=== PATIENT | male | born 1985 | race African-American/Black ===

== ENCOUNTER 2021-10-17 19:21 | Inpatient (IN) | payer MEDICAID ==
[~2021-10-17] VITALS: Ht 182.9 cm; Wt 116.3 kg
[2021-10-17] MEDS ORDERED: ondansetron/PF 4mg/2ml inj IV ONE (20:10)
--- NOTE | 2021-10-17 20:17 | NUR ---
COVID SWAB COLLECTED IN TRIAGE.
[2021-10-17 20:42] LABS: BASOPHILS # (AUTO) 0.1 X10'3 (0-0.2); BASOPHILS % (AUTO) 0.3 % (0-1); EOSINOPHILS % (AUTO) 0 % (0-6); HEMATOCRIT 44.6 % (42.0-52.0); HEMOGLOBIN 15.3 g/dl (14.0-17.9); LYMPHOCYTES # (AUTO) 1.7 X10'3 (1.1-4.8); LYMPHOCYTES % (AUTO) 9.4 % (21-51); MEAN CORPUSCULAR HEMOGLOBIN 30.9 PG (27.0-31.0); MEAN CORPUSCULAR HGB CONC 34.2 g/dL (33.0-36.5); MEAN CORPUSCULAR VOLUME 90.3 FL (78-98); MEAN PLATELET VOLUME 7.6 FL (7.4-10.4); MONOCYTES # (AUTO) 0.6 X10'3 (0-0.9); MONOCYTES % (AUTO) 3.2 % (2-12); NEUTROPHILS # (AUTO) 16.1 X10'3 (1.8-7.7); NEUTROPHILS % (AUTO) 87.1 % (42-75); PLATELET COUNT 283 X10'3 (140-440); RED BLOOD COUNT 4.94 X10'6 (4.70-6.10); RED CELL DISTRIBUTION WIDTH 13.6 % (11.5-14.5); WHITE BLOOD COUNT 18.5 X10'3 (4.5-11.0)
[2021-10-17 20:56] LABS: ALANINE AMINOTRANSFERASE 42 U/L (12-78); ALBUMIN 4.1 G/DL (3.4-5.0); ALBUMIN/GLOBULIN RATIO 1.1 (1.1-1.5); ALKALINE PHOSPHATASE 90 IU/L (46-116); ANION GAP 13 (8-16); ASPARTATE AMINO TRANSFERASE 18 U/L (10-37); BILIRUBIN,TOTAL 1.5 MG/DL (0.1-1.0); BLOOD UREA NITROGEN 11 MG/DL (7-18); BUN/CREATININE RATIO 10.1 (5.4-32.0); CHLORIDE 96 MMOL/L (99-107); CREATININE 1.09 MG/DL (0.60-1.10); GLUCOSE 136 MG/DL (70-104); LIPASE 79 U/L (73-393); SODIUM 135 MMOL/L (135-145); TOTAL CARBON DIOXIDE 26.1 MMOL/L (24-32); eGFR 77 ML/MIN
[2021-10-17] MEDS ORDERED: temazepam 15mg capsule PO PRN (21:00)
[2021-10-17] MEDS ORDERED: piperacillin/tazo 3.375gm/50ml 50 ML IV ONE (21:00)
[2021-10-17] MEDS ORDERED: mag hydrox/Alum hydrox/simeth 30ml oral suspension PO PRN (21:35)
[2021-10-17] MEDS: normal saline 1000ml 1,000 ML IV SCH (21:35)
[2021-10-17] MEDS ORDERED: diphenhydrAMINE 25mg capsule PO PRN (21:35)
[2021-10-17] MEDS ORDERED: bisacodyl 10mg suppository rectal RC PRN (21:35)
[2021-10-17] MEDS ORDERED: ondansetron/PF 4mg/2ml inj IV PRN (21:35)
[2021-10-17] MEDS ORDERED: diphenhydrAMINE 50 mg/ml inj IV PRN (21:35)
[2021-10-17] MEDS ORDERED: metoclopramide 5 mg/ml inj IV PRN (21:35)
[2021-10-17] MEDS ORDERED: HYDROmorphone inj. 0.5 MG/0.5 ML DISP.SYRIN IV PRN (21:35)
[2021-10-17] MEDS ORDERED: acetaminophen 650mg rectal suppository RC PRN (21:35)
[2021-10-17] MEDS ORDERED: magnesium hydroxide 30ml (MOM) UD suspension PO PRN (21:35)
[2021-10-17] MEDS ORDERED: normal saline 1000ML IV soln IVB ONE (22:00)
[2021-10-17 22:04] LABS: MAGNESIUM 1.7 MG/DL (1.5-2.4); PHOSPHORUS 3.4 MG/DL (2.3-4.5)
[2021-10-17 22:10] VITALS: BP 141/95
[2021-10-17] MEDS ORDERED: PROP10TA10 PO (22:40)
[2021-10-17] MEDS ORDERED: OLAN15TA35 PO (22:40)
[2021-10-17] MEDS ORDERED: CHOL500050 PO (22:40)
[2021-10-17] MEDS ORDERED: GUAN3TAB2 PO (22:40)
[2021-10-17] MEDS ORDERED: VENL150C58 PO (22:40)
--- NOTE | 2021-10-17 22:45 | NUR ---
rECEIVED PT FROM ER VIA W/C. ORIENTED TO ROOM AND ROUTINE, ALERT AND ORIENTED Addendum: 10/18/21 at 0413 by Davian Hampton RN Amended: Links added.
[2021-10-17] MEDS: morphine 4 MG/ML inj SYRINge IV PRN (22:46)
[2021-10-17] MEDS: piperacillin/tazo 4.5gm/100ml 100 ML IV SCH (22:53)
[2021-10-17] MEDS: nicotine 21mg patch - 24 hr TD ONE ×2 (22:53→23:00)
[2021-10-17 23:38] LABS: APTT 28 SECONDS (22-32)
[2021-10-17 23:59] LABS: HEMOGLOBIN A1C 6.1 % (4.5-6.2)
[2021-10-18] VITALS (17 sets, daily range): BP systolic 122–140; BP diastolic 73–89
[2021-10-18] MEDS ORDERED: piperacillin/tazo 4.5gm/100ml 100 ML IV SCH
[2021-10-18] MEDS: morphine 4 MG/ML inj SYRINge IV PRN (06:14)
[2021-10-18 07:13] LABS: BASOPHILS % (AUTO) 0.2 % (0-1); EOSINOPHILS % (AUTO) 0.1 % (0-6); MONOCYTES # (AUTO) 0.5 X10'3 (0-0.9)
[2021-10-18 07:16] LABS: HEMATOCRIT 40.5 % (42.0-52.0); HEMOGLOBIN 13.9 g/dl (14.0-17.9); LYMPHOCYTES # (AUTO) 1.8 X10'3 (1.1-4.8); MEAN CORPUSCULAR HEMOGLOBIN 30.9 PG (27.0-31.0); MEAN CORPUSCULAR HGB CONC 34.2 g/dL (33.0-36.5); MEAN CORPUSCULAR VOLUME 90.5 FL (78-98); MEAN PLATELET VOLUME 7.8 FL (7.4-10.4); MONOCYTES % (AUTO) 2.6 % (2-12); NEUTROPHILS # (AUTO) 17.6 X10'3 (1.8-7.7); NEUTROPHILS % (AUTO) 88.1 % (42-75); PLATELET COUNT 253 X10'3 (140-440); RED BLOOD COUNT 4.48 X10'6 (4.70-6.10); RED CELL DISTRIBUTION WIDTH 13.9 % (11.5-14.5); WHITE BLOOD COUNT 19.9 X10'3 (4.5-11.0)
[2021-10-18 07:24] LABS: ALANINE AMINOTRANSFERASE 34 U/L (12-78); ALBUMIN 3.4 G/DL (3.4-5.0); ALBUMIN/GLOBULIN RATIO 0.9 (1.1-1.5); ALKALINE PHOSPHATASE 76 IU/L (46-116); ANION GAP 10 (8-16); ASPARTATE AMINO TRANSFERASE 14 U/L (10-37); BILIRUBIN,TOTAL 1.5 MG/DL (0.1-1.0); BLOOD UREA NITROGEN 11 MG/DL (7-18); BUN/CREATININE RATIO 10.6 (5.4-32.0); CALCIUM 8.4 MG/DL (8.5-10.1); CHLORIDE 99 MMOL/L (99-107); CREATININE 1.04 MG/DL (0.60-1.10); GLUCOSE 130 MG/DL (70-104); POTASSIUM 3.6 MMOL/L (3.5-5.1); SODIUM 136 MMOL/L (135-145); TOTAL CARBON DIOXIDE 27.4 MMOL/L (24-32); TOTAL PROTEIN 7.1 G/DL (6.4-8.2); eGFR 81 ML/MIN
[2021-10-18] MEDS: normal saline 1000ml 1,000 ML IV SCH ×2 (07:35→15:37)
--- NOTE | 2021-10-18 07:39 | NUR ---
Problems reprioritized. Patient report given, questions answered & plan of care reviewed with KALEY Bustos. Addendum: 10/18/21 at 0740 by Davian Hampton RN Amended: Links added.
[2021-10-18] MEDS ORDERED: BUPIVAcaine/PF 2.5 mg/ml (0.25%) 30ml vial ONE (07:48)
[2021-10-18] MEDS: piperacillin/tazo 4.5gm/100ml 100 ML IV SCH ×3 (07:55→22:37)
[2021-10-18] MEDS: propranolol 10mg tablet PO SCH ×2 (07:55→20:12)
[2021-10-18] MEDS: docusate sod 100mg capsule PO SCH ×2 (08:00→20:12)
[2021-10-18] MEDS ORDERED: ondansetron/PF 4mg/2ml inj IV PRN (08:05)
[2021-10-18] MEDS ORDERED: morphine 2 MG/ML inj. syringe IV PRN (08:05)
[2021-10-18] MEDS ORDERED: morphine 4 MG/ML inj SYRINge IV PRN (08:05)
[2021-10-18] MEDS ORDERED: meperidine/PF 25mg/ml syringe IV PRN ×2 (08:05)
[2021-10-18] MEDS ORDERED: ringers solution, lacted 1,000 ML IV SCH (08:05)
[2021-10-18] MEDS ORDERED: proCHLORperazine 10 MG/2 ml inj IV PRN (08:05)
--- NOTE | 2021-10-18 08:15 | NUR ---
Called report to Carol in Recovery all questions answered. Whit is aware NOC shift RN gave 4mg IV Morphine but it did not save in computer.
--- NOTE | 2021-10-18 08:22 | NUR ---
DM consult: Pt with T2DM, well controlled with A1c 6.1%, DM education not warranted at this time. Will continue to follow. Addendum: 10/18/21 at [address] Amended: Links added.
[2021-10-18] MEDS: meperidine/PF 25mg/ml syringe IV PRN ×2 (08:35→10:45)
[2021-10-18 08:42] LABS: PLATELET ESTIMATE NORMAL; TOTAL CELLS COUNTED 100
--- NOTE | 2021-10-18 08:44 | NUR ---
Called Alda ROCHE at home she had administered 4mg IV Morphine at 0612 did not realize it did not save. She will try and get back in to fix in computer.
[2021-10-18] MEDS ORDERED: midazolam 1 mg/ML 2ml injection ONE (08:58)
[2021-10-18] MEDS ORDERED: fentaNYL /PF 50mcg/ml 5ml ampule ONE (08:59)
[2021-10-18] MEDS ORDERED: LIDOcaine 2% (20mg/ml) 5ml vial ONE (09:11)
[2021-10-18] MEDS ORDERED: propofol inj 20 ML IV ONE (09:11)
[2021-10-18] MEDS ORDERED: ondansetron/PF 4mg/2ml inj ONE (09:33)
[2021-10-18] MEDS ORDERED: rocuronium 10mg/ml inj IV ONE (09:34)
[2021-10-18] MEDS ORDERED: HYDROcodone/acetaminophen 10/325mg tab PO PRN (10:10)
--- NOTE | 2021-10-18 10:19 | NUR ---
Received from OR via , accompanied by Anesthesiologist DR CUADRA and report given by Anesthesiolgist. PT PRESENTS WITH 20G LEFT FOREARM, WILL DRAIN ABD DRESSING DRY AND INTACT, VSS Addendum: 10/18/21 at 1023 by Carol Smyth RN, RN Amended: Links added.
--- NOTE | 2021-10-18 10:55 | NUR ---
Report called to receiving nurse LJ ROCHE. Transferred via [facility]OSPITAL BED BY MADIHA ROCHE TO ROOM 360A. PT BELONGINGS LEFT IN PT ROOM 360A. Special Issues communicated to receiving nurse. Addendum: 10/18/21 at 1102 by Carol Smyth RN RN Amended: Links added.
--- NOTE | 2021-10-18 10:56 | NUR ---
PT REQUESTING TO USE A URINAL. PT PRESENTED WITH URINAL AND IS COMPLAINING THAT HE CAN NOT URINATE SITTING DOWN. PT WOULD LIKE TO STAND UP, I EXPPLAINED THAT HE JUST HAD SURGERY IT WOULD NOT BE GOOD FOR HIM TO STAND UP AT THIS TIME. I ASKED TO BLADDER SCAN PT AND HE REFUSED SAYING HE JUST WANTED TO STAND UP. I EXPLAINED IN SURGERY THEY INSERTED A COOL CATHETER AND DRAINED HIS BLADDER. PT IS INSISTENT IN STANDING UP. PT TAKEN TO THE FLOOR WHERE THEY HAVE PRIVATE BATHROOMS. MADIHA ROCHE TAKEN TO THE FLOOR. Addendum: 10/18/21 at 1102 by Carol Smyth RN, RN Amended: Links added.
[2021-10-18] MEDS: pantoprazole 40MG/NS 100ML BAG 100 ML IV SCH (11:26)
[2021-10-18] MEDS: OLANZAPINE 5 MG TABLET PO SCH (11:26)
[2021-10-18] MEDS: venlafaxine XR 75mg capsule (Q24H) PO SCH (11:28)
[2021-10-18 11:32] LABS: CLARITY,URINE CLEAR (Clear); COLOR,URINE YELLOW (Yellow); GLUCOSE, URINE NEGATIVE (Neg); KETONES,URINE NEGATIVE (Neg); LEUKOCYTE ESTERASE ,URINE NEGATIVE (Neg); NITRITES, URINE NEGATIVE (Neg); OCCULT BLOOD,URINE MODERATE (Neg); PROTEIN,URINE NEGATIVE (Neg); UROBILINOGEN,URINE 0.2 E.U/dL (0.2-1.0)
[2021-10-18 11:58] LABS: UA COLLECTION TYPE CLN CATCH MIDSTREAM
[2021-10-18 12:14] LABS: BACTERIA,URINE NONE SEEN /HPF (Neg); MUCUS STRANDS FEW /LPF (Neg); SQUAMOUS EPITHELIAL CELL,UR FEW /LPF (FEW); TRANSITIONAL EPI CELLS,URINE MODERATE /HPF; WBC,URINE 0-4 /HPF (0-4)
--- NOTE | 2021-10-18 15:50 | NUR ---
Patient took off his post op vitals had to restart post op vitals
--- NOTE | 2021-10-18 19:15 | NUR ---
Problems reprioritized. Patient report given, questions answered & plan of care reviewed with Nelly ROCHE.
[2021-10-18] MEDS: HYDROcodone/acetaminophen 5mg/325mg tablet PO PRN (22:37)
[2021-10-19] VITALS: BP 103/76
[2021-10-19] MEDS: morphine 2 MG/ML inj. syringe IV PRN ×2 (00:03→03:45)
[2021-10-19 04:00] VITALS: BP 125/72
--- NOTE | 2021-10-19 06:10 | NUR ---
Patient in room [facility]. I have received report from KALEY Villegas and had the opportunity to ask questions and assume patient care.
--- NOTE | 2021-10-19 06:11 | NUR ---
Problems reprioritized. Patient report given, questions answered & plan of care reviewed with Dilcia ROCHE. Addendum: 10/19/21 at 0612 by Nelly Truong RN Amended: Links added.
[2021-10-19 06:30] VITALS: BP 116/70
[2021-10-19 07:32] LABS: BASOPHILS % (AUTO) 0.1 % (0-1); EOSINOPHILS % (AUTO) 0 % (0-6); HEMATOCRIT 37.4 % (42.0-52.0); HEMOGLOBIN 12.7 g/dl (14.0-17.9); LYMPHOCYTES % (AUTO) 5.4 % (21-51); MEAN CORPUSCULAR HEMOGLOBIN 31.2 PG (27.0-31.0); MEAN CORPUSCULAR HGB CONC 33.9 g/dL (33.0-36.5); MEAN CORPUSCULAR VOLUME 91.9 FL (78-98); MEAN PLATELET VOLUME 7.8 FL (7.4-10.4); MONOCYTES # (AUTO) 0.9 X10'3 (0-0.9); MONOCYTES % (AUTO) 4.9 % (2-12); NEUTROPHILS # (AUTO) 16.2 X10'3 (1.8-7.7); NEUTROPHILS % (AUTO) 89.6 % (42-75); PLATELET COUNT 214 X10'3 (140-440); RED BLOOD COUNT 4.07 X10'6 (4.70-6.10); RED CELL DISTRIBUTION WIDTH 13.8 % (11.5-14.5); WHITE BLOOD COUNT 18.1 X10'3 (4.5-11.0)
[2021-10-19] MEDS: HYDROcodone/acetaminophen 10/325mg tab PO PRN ×4 (07:34→22:21)
[2021-10-19 07:45] LABS: ALANINE AMINOTRANSFERASE 25 U/L (12-78); ALBUMIN 2.9 G/DL (3.4-5.0); ALBUMIN/GLOBULIN RATIO 0.7 (1.1-1.5); ALKALINE PHOSPHATASE 72 IU/L (46-116); ANION GAP 8 (8-16); ASPARTATE AMINO TRANSFERASE 10 U/L (10-37); BILIRUBIN,TOTAL 0.7 MG/DL (0.1-1.0); BLOOD UREA NITROGEN 9 MG/DL (7-18); BUN/CREATININE RATIO 9.9 (5.4-32.0); CALCIUM 8.5 MG/DL (8.5-10.1); CHLORIDE 104 MMOL/L (99-107); CREATININE 0.91 MG/DL (0.60-1.10); GLUCOSE 126 MG/DL (70-104); POTASSIUM 3.9 MMOL/L (3.5-5.1); SODIUM 140 MMOL/L (135-145); TOTAL CARBON DIOXIDE 28.2 MMOL/L (24-32); TOTAL PROTEIN 6.9 G/DL (6.4-8.2); eGFR > 90 ML/MIN
[2021-10-19] MEDS: OLANZAPINE 5 MG TABLET PO SCH ×3 (08:00→20:46)
[2021-10-19] MEDS: pantoprazole 40MG/NS 100ML BAG 100 ML IV SCH (08:45)
[2021-10-19] MEDS: venlafaxine XR 75mg capsule (Q24H) PO SCH (08:48)
[2021-10-19] MEDS: docusate sod 100mg capsule PO SCH ×2 (08:48→20:46)
[2021-10-19] MEDS: propranolol 10mg tablet PO SCH ×2 (08:48→20:47)
[2021-10-19] MEDS ORDERED: HYDR-3965 PO (09:21)
[2021-10-19] MEDS: piperacillin/tazo 4.5gm/100ml 100 ML IV SCH ×2 (09:35→16:08)
[2021-10-19 11:00] VITALS: BP 117/70
[2021-10-19] MEDS: normal saline 1000ml 1,000 ML IV SCH ×2 (14:26)
--- NOTE | 2021-10-19 18:40 | NUR ---
Problems reprioritized. Patient report given, questions answered & plan of care reviewed with Cris Lynch RN.
--- NOTE | 2021-10-19 18:45 | NUR ---
Patient in room [facility]. I have received report from YESSENIA ROCHE and had the opportunity to ask questions and assume patient care.
[2021-10-19 20:00] VITALS: BP 135/86
[2021-10-20] VITALS: BP 111/69
[2021-10-20] MEDS: normal saline 1000ml 1,000 ML IV SCH ×3 (00:45→19:35)
[2021-10-20] MEDS: piperacillin/tazo 4.5gm/100ml 100 ML IV SCH ×4 (00:45→23:35)
[2021-10-20] MEDS: HYDROcodone/acetaminophen 10/325mg tab PO PRN ×3 (03:33→12:57)
--- NOTE | 2021-10-20 04:43 | NUR ---
Problems reprioritized. Patient report given, questions answered & plan of care reviewed with PRUDENCE RN.
--- NOTE | 2021-10-20 05:37 | NUR ---
Patient in room [facility]. I have received report from LOLLY AMBROCIO RN and had the opportunity to ask questions and assume patient care.
[2021-10-20 05:44] LABS: BASOPHILS % (AUTO) 0.3 % (0-1); EOSINOPHILS % (AUTO) 0.3 % (0-6); HEMATOCRIT 38.1 % (42.0-52.0); HEMOGLOBIN 12.8 g/dl (14.0-17.9); LYMPHOCYTES # (AUTO) 1.4 X10'3 (1.1-4.8); LYMPHOCYTES % (AUTO) 10.8 % (21-51); MEAN CORPUSCULAR HEMOGLOBIN 30.9 PG (27.0-31.0); MEAN CORPUSCULAR HGB CONC 33.6 g/dL (33.0-36.5); MEAN PLATELET VOLUME 7.9 FL (7.4-10.4); MONOCYTES # (AUTO) 1.2 X10'3 (0-0.9); MONOCYTES % (AUTO) 9.2 % (2-12); NEUTROPHILS # (AUTO) 10.3 X10'3 (1.8-7.7); NEUTROPHILS % (AUTO) 79.4 % (42-75); PLATELET COUNT 244 X10'3 (140-440); RED BLOOD COUNT 4.14 X10'6 (4.70-6.10); RED CELL DISTRIBUTION WIDTH 13.9 % (11.5-14.5)
[2021-10-20 06:00] LABS: ALANINE AMINOTRANSFERASE 24 U/L (12-78); ALBUMIN 2.8 G/DL (3.4-5.0); ALBUMIN/GLOBULIN RATIO 0.7 (1.1-1.5); ALKALINE PHOSPHATASE 74 IU/L (46-116); ANION GAP 5 (8-16); ASPARTATE AMINO TRANSFERASE 14 U/L (10-37); BLOOD UREA NITROGEN 7 MG/DL (7-18); BUN/CREATININE RATIO 7.4 (5.4-32.0); CALCIUM 8.5 MG/DL (8.5-10.1); CHLORIDE 102 MMOL/L (99-107); CREATININE 0.94 MG/DL (0.60-1.10); GLUCOSE 110 MG/DL (70-104); POTASSIUM 3.7 MMOL/L (3.5-5.1); SODIUM 137 MMOL/L (135-145); TOTAL CARBON DIOXIDE 30.1 MMOL/L (24-32); TOTAL PROTEIN 6.7 G/DL (6.4-8.2); eGFR > 90 ML/MIN
[2021-10-20] MEDS: venlafaxine XR 75mg capsule (Q24H) PO SCH (07:38)
[2021-10-20] MEDS: docusate sod 100mg capsule PO SCH ×2 (07:38→21:21)
[2021-10-20] MEDS: propranolol 10mg tablet PO SCH ×3 (07:39→23:35)
[2021-10-20] MEDS: pantoprazole 40MG/NS 100ML BAG 100 ML IV SCH (07:39)
[2021-10-20 08:00] VITALS: BP 140/81
[2021-10-20 11:49] VITALS: BP 134/76
--- NOTE | 2021-10-20 11:50 | NUR ---
Patient in room [facility]. I have received report from KALEY Coy and had the opportunity to ask questions and assume patient care.
[2021-10-20 11:51] VITALS: BP 134/76
--- NOTE | 2021-10-20 11:55 | NUR ---
Problems reprioritized. Patient report given, questions answered & plan of care reviewed with SUE ROCHE.
[2021-10-20 18:00] VITALS: BP 149/90
--- NOTE | 2021-10-20 18:15 | NUR ---
Problems reprioritized. Patient report given, questions answered & plan of care reviewed with LIYAH Valadez.
[2021-10-20] MEDS: OLANZAPINE 5 MG TABLET PO SCH (21:21)
[2021-10-20] MEDS: morphine 2 MG/ML inj. syringe IV PRN (21:28)
[2021-10-20] MEDS: acetaminophen 325mg tablet PO PRN (22:51)
[2021-10-20] MEDS ORDERED: propranolol 10mg tablet PO ONE (23:25)
[2021-10-21] VITALS: BP 165/110
[2021-10-21] MEDS: HYDROcodone/acetaminophen 10/325mg tab PO PRN ×2 (01:28→08:18)
[2021-10-21] MEDS: normal saline 1000ml 1,000 ML IV SCH ×3 (01:31→21:55)
[2021-10-21] MEDS: morphine 2 MG/ML inj. syringe IV PRN (05:24)
[2021-10-21 06:38] LABS: BASOPHILS % (AUTO) 0.2 % (0-1); EOSINOPHILS # (AUTO) 0.1 X10'3 (0-0.9); EOSINOPHILS % (AUTO) 0.9 % (0-6); HEMATOCRIT 40.6 % (42.0-52.0); HEMOGLOBIN 13.7 g/dl (14.0-17.9); LYMPHOCYTES # (AUTO) 1.9 X10'3 (1.1-4.8); LYMPHOCYTES % (AUTO) 12.8 % (21-51); MEAN CORPUSCULAR HGB CONC 33.8 g/dL (33.0-36.5); MEAN CORPUSCULAR VOLUME 91.7 FL (78-98); MEAN PLATELET VOLUME 7.5 FL (7.4-10.4); MONOCYTES # (AUTO) 1.9 X10'3 (0-0.9); MONOCYTES % (AUTO) 12.2 % (2-12); NEUTROPHILS # (AUTO) 11.2 X10'3 (1.8-7.7); NEUTROPHILS % (AUTO) 73.9 % (42-75); PLATELET COUNT 265 X10'3 (140-440); RED BLOOD COUNT 4.43 X10'6 (4.70-6.10); RED CELL DISTRIBUTION WIDTH 13.6 % (11.5-14.5); WHITE BLOOD COUNT 15.2 X10'3 (4.5-11.0)
[2021-10-21 06:50] LABS: ALANINE AMINOTRANSFERASE 32 U/L (12-78); ALBUMIN 2.6 G/DL (3.4-5.0); ALBUMIN/GLOBULIN RATIO 0.6 (1.1-1.5); ALKALINE PHOSPHATASE 94 IU/L (46-116); ANION GAP 8 (8-16); ASPARTATE AMINO TRANSFERASE 23 U/L (10-37); BILIRUBIN,TOTAL 1.4 MG/DL (0.1-1.0); BLOOD UREA NITROGEN 8 MG/DL (7-18); BUN/CREATININE RATIO 9.1 (5.4-32.0); CALCIUM 8.4 MG/DL (8.5-10.1); CHLORIDE 101 MMOL/L (99-107); CREATININE 0.88 MG/DL (0.60-1.10); GLUCOSE 91 MG/DL (70-104); POTASSIUM 3.4 MMOL/L (3.5-5.1); SODIUM 138 MMOL/L (135-145); TOTAL CARBON DIOXIDE 28.7 MMOL/L (24-32); eGFR > 90 ML/MIN
[2021-10-21 07:00] VITALS: BP 142/92
[2021-10-21] MEDS: piperacillin/tazo 4.5gm/100ml 100 ML IV SCH ×3 (08:17→23:37)
[2021-10-21] MEDS: venlafaxine XR 75mg capsule (Q24H) PO SCH (08:18)
[2021-10-21] MEDS: pantoprazole 40mg Tablet.DR PO SCH (08:18)
[2021-10-21] MEDS: docusate sod 100mg capsule PO SCH ×2 (08:18→19:19)
[2021-10-21 11:00] VITALS: BP 145/93
[2021-10-21] MEDS: acetaminophen 325mg tablet PO PRN (18:28)
[2021-10-21] MEDS: propranolol 10mg tablet PO SCH (19:21)
[2021-10-21 20:00] VITALS: BP 146/95
[2021-10-21] MEDS: HYDROcodone/acetaminophen 5mg/325mg tablet PO PRN (21:51)
[2021-10-21] MEDS: OLANZAPINE 5 MG TABLET PO SCH (21:51)
[2021-10-22] VITALS: BP 127/91
[2021-10-22] MEDS: HYDROcodone/acetaminophen 5mg/325mg tablet PO PRN (02:14)
[2021-10-22] MEDS: morphine 2 MG/ML inj. syringe IV PRN (05:09)
[2021-10-22 06:38] LABS: BASOPHILS % (AUTO) 0.2 % (0-1); EOSINOPHILS # (AUTO) 0.2 X10'3 (0-0.9); EOSINOPHILS % (AUTO) 1.1 % (0-6); HEMOGLOBIN 13.4 g/dl (14.0-17.9); LYMPHOCYTES % (AUTO) 12.6 % (21-51); MEAN CORPUSCULAR HEMOGLOBIN 31.4 PG (27.0-31.0); MEAN CORPUSCULAR HGB CONC 34.5 g/dL (33.0-36.5); MEAN PLATELET VOLUME 7.3 FL (7.4-10.4); MONOCYTES % (AUTO) 13.1 % (2-12); NEUTROPHILS # (AUTO) 11.3 X10'3 (1.8-7.7); PLATELET COUNT 290 X10'3 (140-440); RED BLOOD COUNT 4.28 X10'6 (4.70-6.10); RED CELL DISTRIBUTION WIDTH 14.1 % (11.5-14.5); WHITE BLOOD COUNT 15.5 X10'3 (4.5-11.0)
[2021-10-22 06:50] LABS: ALANINE AMINOTRANSFERASE 31 U/L (12-78); ALBUMIN 2.6 G/DL (3.4-5.0); ALBUMIN/GLOBULIN RATIO 0.6 (1.1-1.5); ALKALINE PHOSPHATASE 110 IU/L (46-116); ANION GAP 7 (8-16); ASPARTATE AMINO TRANSFERASE 18 U/L (10-37); BLOOD UREA NITROGEN 7 MG/DL (7-18); BUN/CREATININE RATIO 9.1 (5.4-32.0); CALCIUM 8.5 MG/DL (8.5-10.1); CHLORIDE 102 MMOL/L (99-107); CREATININE 0.77 MG/DL (0.60-1.10); GLUCOSE 96 MG/DL (70-104); POTASSIUM 3.2 MMOL/L (3.5-5.1); SODIUM 139 MMOL/L (135-145); TOTAL CARBON DIOXIDE 30.2 MMOL/L (24-32); TOTAL PROTEIN 7.2 G/DL (6.4-8.2); eGFR > 90 ML/MIN
[2021-10-22 07:00] VITALS: BP 157/95
[2021-10-22] MEDS: venlafaxine XR 75mg capsule (Q24H) PO SCH (07:32)
[2021-10-22] MEDS: HYDROcodone/acetaminophen 10/325mg tab PO PRN (07:32)
[2021-10-22] MEDS: docusate sod 100mg capsule PO SCH (07:33)
[2021-10-22] MEDS: propranolol 10mg tablet PO SCH (07:33)
[2021-10-22] MEDS: pantoprazole 40mg Tablet.DR PO SCH (07:33)
[2021-10-22] MEDS: normal saline 1000ml 1,000 ML IV SCH (08:23)
[2021-10-22] MEDS: piperacillin/tazo 4.5gm/100ml 100 ML IV SCH (08:23)
[2021-10-22 11:00] VITALS: BP 150/96
--- NOTE | 2021-10-22 11:22 | NUR ---
Patient's peripheral IV catheter on the left hand that I inserted this morning got pulled out. Patient stated that he was sleeping probably laying on it and got pulled out. Attempted to place a new peripheral IV catheter without success. Patient refused further insertion of another IV until he talk to the surgeon
--- NOTE | 2021-10-22 11:49 | NUR ---
Paged Dr. Quintana PAGER ID: [phone] MESSAGE: [facility] RN ext [phone]. RE: Jacinto Borden. Dr. Copeland came by for Dr. Pendleton. He is discharging this patient. He already instructed his office to call in for narcotic prescription ([place]) and Amoxicillin from what I heard.
--- NOTE | 2021-10-22 12:45 | NUR ---
WILL drained discontinued as per Dr. Copeland' instruction
--- NOTE | 2021-10-22 13:40 | NUR ---
Discharged patient home. Discharge instructions given to patient, patient verbalized understanding of all instructions given to him. Instructed patient to ensure he has all belongings with him before leaving. Sent a page message to Dr. Quintana that Dr. Copeland discharging this patient. When Dr. Copeland came by talking to the patient that he will be discharge today, Dr. Copeland was texting someone requesting for [place] prescription and Amoxicillin prescriptions. Dr. Copeland told patient that his new prescription for [place] and oral antibiotic will be electronically sent to his pharmacy. Patient told Dr. Copeland that he wanted his new prescription to [facility] pharmacy at [facility].
--- NOTE | 2021-10-22 13:59 | NUR ---
Initial: Pt admitted w/ acute appendicitis, underwent laparoscopic appendectomy 10/18 per EMR. Pt previously on Clear/Full liquid diet w/ mostly 0% intake of meals though just advanced to Regular diet today; pending further PO trends on solid foods. LBM 10/22. No nutrition intervention implemented at this time, will continue to monitor. Recs; 1. Continue Regular diet as tolerated 2. Monitor need for ONS 3. Bowel care per rx 4. Weekly wts Addendum: 10/22/21 at [address] Amended: Links added.
== END 2021-10-22 13:40 | disposition home or self-care (01) | DRG 233 ==
LOC: ER 19:23 → SUR 3N 21:36
PROVIDERS: ADMIT Family Medicine; ATTEND Family Medicine
PROC: 0DTJ4ZZ Resection of Appendix, Percutaneous Endoscopic Approach (ICD-10-PCS; principal; 2021-10-18 08:55)
DX: K35.32 Acute appendicitis with perforation, localized peritonitis, and gangrene, without abscess (principal); K76.0 Fatty (change of) liver, not elsewhere classified; E11.9 Type 2 diabetes mellitus without complications; E66.9 Obesity, unspecified; Z20.822 Contact with and (suspected) exposure to COVID-19; K57.90 Diverticulosis of intestine, part unspecified, without perforation or abscess without bleeding; E86.0 Dehydration; F20.9 Schizophrenia, unspecified; G47.30 Sleep apnea, unspecified; F31.9 Bipolar disorder, unspecified; I10 Essential (primary) hypertension; Z68.34 Body mass index [BMI] 34.0-34.9, adult; Z72.0 Tobacco use; Z79.899 Other long term (current) drug therapy
CPT/HCPCS: 36415; 74176; 80053; 81001; 82948; 83036; 83690; 83735; 83880; 84100; 85007; 85025; 85610; 85730; 87081; 87635; 99285; A4215; A4314; A4618; A6266; A6449; A7000; C9113; C9803; G0378; J2175; J2250; J2270; J2405; J2543; J2704; J3010; J3490; J7030; J7120

== ENCOUNTER 2022-07-13 08:35 | Emergency (ER) | payer MEDICAID ==
[~2022-07-13] VITALS: Ht 182.9 cm; Wt 110.9 kg
[~2022-07-13 08:35] MED LIST: CHOL500050 PO; GUAN3TAB2 PO; OLAN15TA35 PO; PROP10TA10 PO; VENL150C58 PO
[2022-07-13 09:25] VITALS: BP 131/99
[2022-07-13] MEDS ORDERED: ERYT1OIN6 RIGHTEYE (11:35)
== END 2022-07-13 12:10 | disposition home or self-care (01) ==
LOC: ER 08:36
DX: H10.31 Unspecified acute conjunctivitis, right eye (principal); F32.A Depression, unspecified; Z79.2 Long term (current) use of antibiotics; Z79.899 Other long term (current) drug therapy
CPT/HCPCS: 99283

== ENCOUNTER 2023-01-15 14:39 | Emergency (ER) | payer MEDICAID ==
[~2023-01-15] VITALS: Ht 182.9 cm; Wt 112.7 kg
[2023-01-15] MEDS ORDERED: LIDOcaine 1% W/epiNEPHrine 1:100,000 20ml vial SQ ONE (16:35)
[2023-01-15] MEDS ORDERED: TETanus/Pertussis (Acell)/Diphther VAC/PF (Tdap-Adult) 0.5ml syringe IMVAC ONE (16:55)
[2023-01-15 18:54] VITALS: BP 125/78
== END 2023-01-15 18:57 | disposition home or self-care (01) ==
LOC: ER 14:39
DX: S61.217A Laceration without foreign body of left little finger without damage to nail, initial encounter (principal); F32.9 Major depressive disorder, single episode, unspecified; F17.200 Nicotine dependence, unspecified, uncomplicated; F12.90 Cannabis use, unspecified, uncomplicated; Z79.899 Other long term (current) drug therapy; Z72.89 Other problems related to lifestyle; W25.XXXA Contact with sharp glass, initial encounter; Y93.89 Activity, other specified; Y92.89 Other specified places as the place of occurrence of the external cause; Y99.8 Other external cause status
CPT/HCPCS: 12001; 73140; 90471; 90715; 99283; J3490; A6258; A6449